=== PATIENT | female | born 1990 | race African-American/Black ===

== ENCOUNTER 2016-10-04 15:14 | Emergency (ER) | payer MEDICAID ==
[2016-10-04] MEDS ORDERED: IBUPROFEN 600 MG TABLET PO ONE (17:57)
--- NOTE | 2016-10-04 17:58 | ER Document Report ---
ED General - General Chief Complaint: Abdominal Pain Stated Complaint: NUMBNESS Mode of Arrival: Ambulatory Information source: Patient Notes: Patient is complaining of headache and sore throat for the past 2 days, the headache worsened last night. Endorses associated fever and chills but denies cough, rhinorrhea, ear pain, nausea, vomiting, diarrhea or urinary symptoms. She has tried ibuprofen, Dayquil which has not provided any relief. Denies any sick contacts or recent travel. She states she was having abdominal pain but it started right before going to the bathroom and completely resolved afterwards. TRAVEL OUTSIDE OF THE [place] IN LAST 30 DAYS: No - Related Data Allergies/Adverse Reactions: No Known Allergies Allergy (Verified 10/04/16 15:26) Past Medical History - Social History Smoking Status: Unknown if Ever Smoked Family History: None Past Surgical History: Reports: Hx Orthopedic Surgery - left leg Review of Systems - Review of Systems Constitutional: See HPI EENT: See HPI Gastrointestinal: See HPI Physical Exam - Vital signs Vitals: Temp Pulse Resp BP Pulse Ox 100.2 F 92 20 144/76 H 100 10/04/16 15:22 10/04/16 15:22 10/04/16 15:22 10/04/16 15:22 10/04/16 15:22 - Notes Notes: PHYSICAL EXAM: CONSTITUTIONAL: Alert and oriented, well-appearing and in no acute distress. HENT: Normocephalic, atraumatic. Ear canals without erythema or foreign body, TMs pearly fisher with good bony landmarks. Nares clear without erythema, septal hematoma or deviation, airway patent. Oropharynx erythematous with tonsilar enlargement and exudates bilaterally but no malocclusion. Trachea midline. Uvula midline. Moist mucous membranes. EYES: Pupils equal round and reactive to light, EOM intact. Sclera anicteric, conjunctiva are normal. No entrapment. HEART: Regular rate and rhythm without murmurs. LUNGS: CTAB and equal. No wheezes, rales or rhonchi. GI: Nontender, non-distended. No organomegaly. no CVAT. EXTREMITIES: Normal range of motion, no pitting edema. No cyanosis. Cap Refill < 3 seconds. SKIN: Warm and dry. Normal turgor. No rashes or lesions noted. Course - Re-evaluation Re-evalutation: 10/04/16 19:06 Reviewed lab work - POS rapid strep, NEG influenza. Discussed results with patient. Discharged home in stable condition, provided script for abx. Supportive care treatments discussed. Follow-up with PMD. - Vital Signs Vital signs: Temp Pulse Resp BP Pulse Ox 100.2 F 92 20 144/76 H 100 10/04/16 15:22 10/04/16 15:22 10/04/16 15:22 10/04/16 15:22 10/04/16 15:22 - Laboratory Laboratory results interpreted by me: POS RAPID STREP Discharge - Discharge Clinical Impression: Strep pharyngitis Condition: Stable Disposition: HOME, SELF-CARE Additional Instructions: Strep Throat Your sore throat is due to the streptococcus germ (strep throat). Strep throat usually makes you feel quite ill with fever and aches, headache, swollen sore throat, and tender bumps under the angles of the jaw. Strep throat requires antibiotic treatment. Although the sore throat may go away by itself, complications such as rheumatic fever, kidney disease, or throat abscess can occur. We usually prescribe antibiotics by mouth. Be sure to take the medicine until it's gone. If you stop early, the strep may come back. If you are vomiting, are severely ill, or can't remember to take pills, we can give you an antibiotic shot. Take acetaminophen or ibuprofen for pain and fever. Sip frequent clear liquids, or use popsicles or ice chips. Anesthetic sprays or lozenges may help. Make sure the air in the room is not too dry. Avoid using decongestants or antihistamines. Call the doctor if there is no improvement in three days, or if you have difficulty breathing, increasing throat pain, high fever, rash, or frequent vomiting. Antibiotic Therapy You have been given an antibiotic prescription. It's important that you take all the medication, unless instructed otherwise by your physician. Failure to complete the entire course can result in relapse of your condition. Common side effects of antibiotics include nausea, intestinal cramping, or diarrhea. Women may develop vaginal yeast infections, and babies can get yeast (thrush) in the mouth following the use of antibiotics. Contact your physician if you develop significant side effects from this medication. Allergy to this antibiotic can result in hives, wheezing, faintness, or itching. If symptoms of allergy occur, stop the medication and call the doctor. Prescriptions: Amoxicillin 500 mg PO Q12H #14 capsule Forms: Return to Work
[2016-10-04 19:21] VITALS: BP 138/74
== END 2016-10-04 19:17 | disposition home or self-care (01) ==
LOC: ER 15:14
DX: J02.0 Streptococcal pharyngitis (principal); R10.9 Unspecified abdominal pain; R20.0 Anesthesia of skin; R51 Headache
CPT/HCPCS: 99283; 87880; 87804; J3490

== ENCOUNTER 2016-10-21 21:04 | Emergency (ER) | payer MEDICAID ==
--- NOTE | 2016-10-21 21:10 | ER Document Report ---
ED Medical Screen (RME) - General Stated Complaint: ARM PAIN Time seen by provider: 21:09 Mode of Arrival: Ambulatory Information source: Patient Notes: 26-year-old female presents to ED for right hand and wrist pain. 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 Last menstrual period . I have greeted and performed a rapid initial assessment of this patient. A comprehensive ED assessment and evaluation of the patient, analysis of test results and completion of medical decision making process will be conducted by an additional ED providers. TRAVEL OUTSIDE OF THE [place] IN LAST 30 DAYS: No - Related Data Allergies/Adverse Reactions: No Known Allergies Allergy (Verified 10/04/16 15:26) Past Medical History Past Surgical History: Reports: Hx Orthopedic Surgery - left leg
[2016-10-21] MEDS ORDERED: IBUPROFEN 800 MG TABLET PO ONE (21:11)
--- NOTE | 2016-10-21 22:00 | ER Document Report ---
ED General - General Chief Complaint: Hand Pain Stated Complaint: ARM PAIN Mode of Arrival: Ambulatory TRAVEL OUTSIDE OF THE [place] 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 Denies any exacerbation of pain with any movements. Patient states is been ongoing for quite some time exacerbated today. Patient also requesting present has no fevers chills nausea vomiting abdominal pain - Related Data Allergies/Adverse Reactions: No Known Allergies Allergy (Verified 10/04/16 15:26) Past Medical History - General Information source: Patient - Social History Smoking Status: Never Smoker Frequency of alcohol use: None Drug Abuse: None Family History: None Renal/ Medical History: Denies: Hx Peritoneal Dialysis Surgical Hx: Negative Past Surgical History: Reports: Hx Orthopedic Surgery - left leg Review of Systems - Review of Systems Constitutional: No symptoms reported EENT: No symptoms reported Cardiovascular: No symptoms reported Respiratory: No symptoms reported Gastrointestinal: No symptoms reported Genitourinary: No symptoms reported Female Genitourinary: No symptoms reported Musculoskeletal: Other - Right hand pain Skin: No symptoms reported Hematologic/Lymphatic: No symptoms reported Neurological/Psychological: No symptoms reported -: Yes All other systems reviewed and negative Physical Exam - Vital signs Vitals: Temp Pulse Resp BP Pulse Ox 98.2 F 69 16 121/59 L 99 10/21/16 21:11 10/21/16 21:11 10/21/16 21:11 10/21/16 21:11 10/21/16 21:11 Interpretation: Normal - General General appearance: Appears well, Alert - HEENT Head: Normocephalic, Atraumatic Eyes: Normal Pupils: PERRL - Respiratory Respiratory status: No respiratory distress Chest status: Nontender Breath sounds: Normal Chest palpation: Normal - Cardiovascular Rhythm: Regular Heart sounds: Normal auscultation Murmur: No - Abdominal Inspection: Normal Distension: No distension Bowel sounds: Normal Tenderness: Nontender Organomegaly: No organomegaly - Back Back: Normal, Nontender - Extremities General upper extremity: Normal inspection, Nontender, Normal color, Normal ROM , Normal temperature General lower extremity: Normal inspection, Nontender, Normal color, Normal ROM , Normal temperature, Normal weight bearing. 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 Sometimes occurs when holding instruments are performing jobs with vibrating instruments. 2 aid in relief the syndrome most the time wearing a thick padded glove or padding the instrument that you're using reduces to vibration and reduces the pain. Treatment of pain includes using Tylenol Motrin. You are not Forms: Return to Work
[2016-10-21 22:16] VITALS: BP 117/70
== END 2016-10-21 22:15 | disposition home or self-care (01) ==
LOC: ER 21:04
DX: M79.641 Pain in right hand (principal); Z32.02 Encounter for pregnancy test, result negative
CPT/HCPCS: 99283; 81025; J3490

== ENCOUNTER 2016-11-02 21:44 | Emergency (ER) | payer MEDICAID ==
[2016-11-02 21:49] VITALS: BP 142/73
--- NOTE | 2016-11-02 21:49 | ER Document Report ---
ED Medical Screen (RME) - General Stated Complaint: FALL,MULTIPLE INJURIES Time seen by provider: 21:46 Mode of Arrival: Ambulatory Information source: Patient Notes: I have greeted and performed a rapid initial assessment of this patient. A comprehensive ED assessment and evaluation of the patient, analysis of test results and completion of the medical decision making process will be conducted by additional ED providers. TRAVEL OUTSIDE OF THE [place] IN LAST 30 DAYS: No - HPI Patient complains to provider of: LEFT FOOT, RIGHT ARM PAIN Onset: This morning Onset/Duration: Sudden Context: FELL OFF PORCH. OPENING DOOR AND SLIPPED. Quality of pain: Throbbing Severity: Moderate Pain Level: 3 Associated Symptoms: None Exacerbated by: Movement, Walking Relieved by: Denies Similar symptoms previously: No Recently seen / treated by doctor: No - Related Data Smoking: Non-smoker Frequency of alcohol use: Occasional Drug Abuse: None Allergies/Adverse Reactions: No Known Allergies Allergy (Verified 10/04/16 15:26) Past Medical History Renal/ Medical History: Denies: Hx Peritoneal Dialysis Past Surgical History: Reports: Hx Orthopedic Surgery - left leg Physical Exam - Vital signs Vitals: Temp Pulse Resp BP Pulse Ox 97.8 F 77 19 142/73 H 98 11/02/16 21:48 11/02/16 21:48 11/02/16 21:48 11/02/16 21:48 11/02/16 21:48 Course - Vital Signs Vital signs: Temp Pulse Resp BP Pulse Ox 97.8 F 77 19 142/73 H 98 11/02/16 21:48 11/02/16 21:48 11/02/16 21:48 11/02/16 21:48 11/02/16 21:48 Doctor's Discharge - Discharge Clinical Impression: Contusion of forearm, right, Strain of foot, left Condition: Good Disposition: HOME, SELF-CARE Additional Instructions: Please return to the ER immediately if you develop worsening pain, increased swelling or pain in the foot, or if you feel unwell. Follow up with your doctor in 3 days for reevaluation. Forms: Return to Work
--- NOTE | 2016-11-02 22:41 | ER Document Report ---
ED General - General Chief Complaint: Fall Stated Complaint: FALL,MULTIPLE INJURIES Mode of Arrival: Ambulatory Notes: Patient is 26 year old female presents with complaint of falling after missing a step. She said she felt onto her right forearm. She also her left foot. Pain is mostly in the bottom of the heel of her left foot. Pain in the form is mostly in the mid forearm. She denies hitting her head. No loss of consciousness. No neck pain. No back pain. No other complaints. She does not take blood thinning medications. No chronic medical problems. TRAVEL OUTSIDE OF THE [place] IN LAST 30 DAYS: No - Related Data Allergies/Adverse Reactions: No Known Allergies Allergy (Verified 10/04/16 15:26) Past Medical History - General Information source: Patient - Social History Smoking Status: Never Smoker Frequency of alcohol use: Occasional Drug Abuse: None Family History: None Patient has suicidal ideation: No Patient has homicidal ideation: No Renal/ Medical History: Denies: Hx Peritoneal Dialysis Past Surgical History: Reports: Hx Orthopedic Surgery - left leg Review of Systems - Review of Systems Notes: My Normal Review Basic REVIEW OF SYSTEMS: CONSTITUTIONAL : Denies fever, chills, or sweats. Denies recent illness. EENT: Denies eye, ear, throat, or mouth pain or symptoms. Denies nasal or sinus congestion. RESPIRATORY: Denies cough, cold, or chest congestion. Denies shortness of breath, difficulty breathing, or wheezing. GASTROINTESTINAL: Denies abdominal pain. Denies nausea, vomiting, or diarrhea. Denies constipation. Last BM: MUSCULOSKELETAL: Right forearm pain. Left foot pain. SKIN: Denies rash or skin lesions. HEMATOLOGIC : Denies easy bruising or bleeding. NEUROLOGICAL: Denies altered mental status or loss of consciousness. Denies headache. Denies weakness or paralysis or loss of use of either side. Denies problems with gait or speech. Denies sensory or motor loss. ALL OTHER SYSTEMS REVIEWED AND NEGATIVE. Physical Exam - Vital signs Vitals: Temp Pulse Resp BP Pulse Ox 97.8 F 77 19 142/73 H 98 11/02/16 21:48 11/02/16 21:48 11/02/16 21:48 11/02/16 21:48 11/02/16 21:48 - Notes Notes: General Appearance: Well nourished, alert, cooperative, no acute distress, no obvious discomfort. Well-appearing. Vitals: reviewed, See vital signs table. Head: no swelling or tenderness to the head Eyes: PERRL, EOMI, Conjuctiva clear Neck: Supple, no neck tenderness, No thyromegaly Lungs: No wheezing, No rales, No rhonci, No accessory muscle use, good air exchange bilaterally. Heart: Normal rate, Regular rythm, No murmur, no rub Abdomen: Normal BS, soft, No rigidity, No abdominal tenderness, No guarding, no rebound, no abdominal masses, no organomegaly Extremities: strength 5/5 in all extremities, good pulses in all extremities, no swelling or tenderness in the extremities with exception of some mild pain palpation of the mid right forearm. No wrist tenderness. No hand tenderness the right strap me. Of the upper extremities completely nontender. Right lower extremity completely nontender. Left lower extremity is only tender to palpation at the base of the left heel. She has mild pain over the dorsum of the left foot as well. No obvious step-offs or deformity. She is good range of motion of the foot without difficulty. Good distal sensation., no edema. Skin: warm, dry, appropriate color, no rash Neuro: speech clear, oriented x 3, normal affect, responds appropriately to questions. Course - Vital Signs Vital signs: Temp Pulse Resp BP Pulse Ox 97.8 F 77 19 142/73 H 98 11/02/16 21:48 11/02/16 21:48 11/02/16 21:48 11/02/16 21:48 11/02/16 21:48 - Transfer of Care Notes: 11/03/16 00:47 Patient's x-rays are negative. She looks well. I feel she is safe to be discharged home. She does request crutches as she does have some pain with walking. I will give her crutches. I encouraged her to follow closely with her primary care doctor and to 3 days for reevaluation. Encouraged return to ER shows worsening pain or feels unwell. Patient agrees with plan and will be discharged home. Dictation of this chart was performed using voice recognition software; therefore, there may be some unintended grammatical errors. Discharge - Discharge Clinical Impression: Contusion of forearm, right Qualifiers: Encounter type: initial encounter Qualified Code(s): S50.11XA - Contusion of right forearm, initial encounter Strain of foot, left Qualifiers: Encounter type: initial encounter Qualified Code(s): S96.912A - Strain of unspecified muscle and tendon at ankle and foot level, left foot, initial encounter Condition: Good Disposition: HOME, SELF-CARE Additional Instructions: Please return to the ER immediately if you develop worsening pain, increased swelling or pain in the foot, or if you feel unwell. Follow up with your doctor in 3 days for reevaluation. Forms: Return to Work
== END 2016-11-02 22:53 | disposition home or self-care (01) ==
LOC: ER 21:44
DX: S50.11XA Contusion of right forearm, initial encounter (principal); S96.912A Strain of unspecified muscle and tendon at ankle and foot level, left foot, initial encounter; W10.9XXA Fall (on) (from) unspecified stairs and steps, initial encounter
CPT/HCPCS: 99284

== ENCOUNTER 2016-12-12 11:42 | Emergency (ER) | payer MEDICAID ==
--- NOTE | 2016-12-12 11:46 | ER Document Report ---
ED Medical Screen (RME) - General Stated Complaint: FLANK PAIN Mode of Arrival: Ambulatory Information source: Patient Notes: Patient presents with lower abdominal pain pain, also pain when she voids and left-sided flank pain. Denies fever vomiting diarrhea. Reports symptoms for the past 3 or 4 days. I have greeted and performed a rapid initial assessment of this patient. A comprehensive ED assessment and evaluation of the patient, analysis of test results and completion of the medical decision making process will be conducted by additional ED providers. TRAVEL OUTSIDE OF THE [place] IN LAST 30 DAYS: No - Related Data Allergies/Adverse Reactions: No Known Allergies Allergy (Verified 12/12/16 11:45) Past Medical History Renal/ Medical History: Denies: Hx Peritoneal Dialysis Past Surgical History: Reports: Hx Orthopedic Surgery - left leg
[2016-12-12 12:10] LABS: ABSOLUTE EOSINOPHILS # (AUTO) 0.1 10^3/uL (0.0-0.6); ABSOLUTE LYMPHOCYTES (AUTO) 1.5 10^3/uL (0.5-4.7); ABSOLUTE MONOCYTES (AUTO) 0.5 10^3/uL (0.1-1.4); BASOPHILS % (AUTO) 0.7 % (0-2); EOSINOPHILS % (AUTO) 1.1 % (0-6); HEMATOCRIT 36.5 % (36.0-47.0); HEMOGLOBIN 12.2 g/dL (12.0-15.5); HGB HCT DIFFERENCE 0.1; LYMPHOCYTES % (AUTO) 24.4 % (13-45); MEAN CORPUSCULAR HEMOGLOBIN 27.1 pg (27.0-33.4); MEAN CORPUSCULAR HGB CONC 33.4 g/dL (32.0-36.0); MEAN CORPUSCULAR VOLUME 81 fl (80-97); MONOCYTES % (AUTO) 7.8 % (3-13); RED BLOOD COUNT 4.51 10^6/uL (3.72-5.28); RED CELL DISTRIBUTION WIDTH 14.9 % (11.5-14.0)
[2016-12-12 12:19] LABS: APPEARANCE,URINE SLIGHTLY-CLOUDY; BILIRUBIN,URINE NEGATIVE (NEGATIVE); GLUCOSE, URINE NEGATIVE (NEGATIVE); KETONES,URINE NEGATIVE (NEGATIVE); LEUKOCYTE ESTERASE,URINE MODERATE (NEGATIVE); NITRITE,URINE NEGATIVE (NEGATIVE); PROTEIN,URINE 100 mg/dL (NEGATIVE); URINE SPECIFIC GRAVITY 1.012; UROBILINOGEN,URINE NEGATIVE mg/dL (<2.0)
[2016-12-12] MEDS ORDERED: ACETAMINOPHEN 325 MG TABLET PO ONE (12:22)
[2016-12-12] MEDS ORDERED: ONDANSETRON 4 MG TAB.RAPDIS PO ONE (12:22)
[2016-12-12 12:28] LABS: ALANINE AMINOTRANSFERASE 23 U/L (9-52); ALBUMIN 4.2 g/dL (3.5-5.0); ALKALINE PHOSPHATASE 129 U/L (38-126); ANION GAP 11 (5-19); ASPARTATE AMINO TRANSFERASE 20 U/L (14-36); BILIRUBIN,TOTAL 0.4 mg/dL (0.2-1.3); BLOOD UREA NITROGEN 10 mg/dL (7-20); CALCIUM 10.1 mg/dL (8.4-10.2); CARBON DIOXIDE 25 mmol/L (22-30); CHLORIDE 105 mmol/L (98-107); CREATININE RESULT 0.78 mg/dL (0.52-1.25); GLUCOSE 108 mg/dL (75-110); POTASSIUM 4.4 mmol/L (3.6-5.0); SODIUM 141.2 mmol/L (137-145); TOTAL PROTEIN 7.7 g/dL (6.3-8.2)
--- NOTE | 2016-12-12 12:35 | ER Document Report ---
HPI - HPI Patient complains to provider of: dysuria and flank pain Pain Level: 5 Context: Patient is a 26-year-old female presents emergency Department with dysuria, pyuria, frequency and urgency for the past 4 days. Patient states she woke up this morning with left-sided flank pain. She denies any hematuria. Denies any nausea or vomiting, diarrhea constipation. Past medical history significant for asthma does not have a rescue inhaler at home. She is very desirous primary care provider. Denies any surgical or social history. - DERM Skin Color: Normal Past Medical History - General Information source: Patient - Social History Smoking Status: Never Smoker Chew tobacco use (# tins/day): No Frequency of alcohol use: None Drug Abuse: None Family History: None Patient has suicidal ideation: No Patient has homicidal ideation: No Renal/ Medical History: Denies: Hx Peritoneal Dialysis Past Surgical History: Reports: Hx Orthopedic Surgery - left leg Vertical Provider Document - CONSTITUTIONAL Agree With Documented VS: Yes Exam Limitations: No Limitations General Appearance: WD/WN, No Apparent Distress - INFECTION CONTROL TRAVEL OUTSIDE OF THE [place] IN LAST 30 DAYS: No - RESPIRATORY Respiratory: Breath Sounds Normal, No Respiratory Distress, Chest Non-Tender. negative: Rales, Rhonchi, Wheezing O2 Sat by Pulse Oximetry: 100 - CARDIOVASCULAR Cardiovascular: Regular Rate, Regular Rhythm, No Murmur Pulses: Normal: Radial, Dorsalis pedis - GI/ABDOMEN Gastrointestinal: Abdomen Soft, Abdomen Non-Tender, No Organomegaly, Normal Bowel Sounds - BACK Back: Normal Inspection. negative: CVA Tenderness-Right, CVA Tenderness-Left - MUSCULOSKELETAL/EXTREMETIES Musculoskeletal/Extremeties: MAEW, FROM, Non-Tender, No Edema - NEURO Level of Consciousness: Awake, Alert, Appropriate Motor/Sensory: No Motor Deficit, No Sensory Deficit - DERM Integumentary: Warm, Dry, No Rash Course - Re-evaluation Re-evalutation: 12/12/16 12:45 Patient is a 26-year-old female is here mainly stable, no acute distress and afebrile. CBC does not reveal elevated blood cell count no concern for leukocytosis, hemoglobin is 11 without any concerns for anemia. CMP normal without any concerns for acute kidney injury or concern for pyelonephritis. Urinalysis does reveal UTI with hematuria. Will discharge patient home on by mouth antibiotics and can follow-up with PCP - Vital Signs Vital signs: Temp Pulse Resp BP Pulse Ox 98.8 F 74 24 H 126/63 H 100 12/12/16 11:46 12/12/16 11:46 12/12/16 11:46 12/12/16 11:46 12/12/16 11:46 - Laboratory Result Diagrams: 12/12/16 11:30 12/12/16 11:30 Laboratory results interpreted by me: 12/12/16 12/12/16 12/12/16 11:30 11:30 11:30 RDW 14.9 H Alkaline Phosphatase 129 H Urine Protein 100 H Urine Blood SMALL H Ur Leukocyte Esterase MODERATE H Urine Ascorbic Acid 40 H Discharge - Discharge Clinical Impression: UTI (urinary tract infection) Condition: Good Disposition: HOME, SELF-CARE Additional Instructions: URINARY TRACT INFECTION: Your evaluation indicates that you have a urinary tract infection. This is due to germs growing in the bladder. This is a common problem. This infection usually responds quickly to antibiotics. Your antibiotic should be taken exactly as prescribed. Drink plenty of fluids -- three to four quarts a day. Occasionally, a bladder anesthetic will be prescribed to help stop the feeling of urgency until the antibiotic has a chance to clear the infection. This may cause your urine to be dark orange. Certain urine infections require a culture. If the doctor obtained a culture, the results will be back in two days. You should call to see if a change in treatment is needed. A repeat urinalysis after you finish treatment is often recommended. The physician will let you know if further testing is required. Call the doctor if you develop fever, chills, flank pain, inability to urinate, or blood in the urine. ANTIBIOTIC THERAPY: You have been given an antibiotic prescription. It's important that you take all the medication, unless instructed otherwise by your physician. Failure to complete the entire course can result in relapse of your condition. Common side effects of antibiotics include nausea, intestinal cramping, or diarrhea. Women may develop vaginal yeast infections, and babies can get yeast (thrush) in the mouth following the use of antibiotics. Contact your physician if you develop significant side effects from this medication. Allergy to this antibiotic can result in hives, wheezing, faintness, or itching. If symptoms of allergy occur, stop the medication and call the doctor. CIPROFLOXACIN: You have been given an antibacterial agent, ciprofloxacin (Cipro). This medicine is not related to the penicillins, sulfas, cephalosporins, or tetracyclines. It is often given to patients who are allergic to these drugs. It has been chosen for you either because other drugs are not appropriate, or because of the nature of your problem. Cipro should not be taken with antacids, as these can decrease its effectiveness. It can be taken without regard to meals. CIPRO SHOULD NOT BE TAKEN BY CHILDREN, NURSING WOMEN, OR WOMEN. Although Cipro is usually well-tolerated, common side effects can include nausea and diarrhea. Contact your doctor if you experience any unusual symptoms while on this medication, such as joint pain or swelling, shortness of breath, wheezing, faintness, or hives. FOLLOW-UP CARE: If you have been referred to a physician for follow-up care, call the physician s office for an appointment as you were instructed or within the next two days. If you experience worsening or a significant change in your symptoms, notify the physician immediately or return to the Emergency Department at any time for re-evaluation. Prescriptions: Ibuprofen [Motrin 800 mg Tablet] 800 mg PO Q8HP PRN #30 tab PRN Reason: Albuterol Sulfate [Proair HFA Inhalation Aerosol 8.5 gm MDI] 2 puff IH Q4H PRN # 1 mdi PRN Reason: Ciprofloxacin HCl [Cipro 250 mg Tablet] 1 tab PO BID #10 tab Referrals: [facility] [NO LOCAL MD] - Follow up as needed RAN DEVINE DO [NO LOCAL MD] - Follow up as needed
[2016-12-12] MEDS ORDERED: CIPROFLOXACIN HCL 500 MG TABLET PO ONE (12:41)
[2016-12-12 13:08] VITALS: BP 138/73
== END 2016-12-12 13:00 | disposition home or self-care (01) ==
LOC: ER 11:42
DX: N39.0 Urinary tract infection, site not specified (principal); R31.9 Hematuria, unspecified; J45.909 Unspecified asthma, uncomplicated
CPT/HCPCS: 99284; 36415; 87086; 85025; 81025; 87088; 80053; 81001; 87186; J3490 ×2; S0119

== ENCOUNTER 2017-09-04 04:07 | Emergency (ER) | payer MEDICAID ==
[2017-09-04] MEDS ORDERED: IBUPROFEN 600 MG TABLET PO ONE (04:26)
--- NOTE | 2017-09-04 04:29 | ER Document Report ---
ED Extremity Problem, Lower - General Chief Complaint: R knee pain Stated Complaint: R KNEE PAIN Time Seen by Provider: 09/04/17 04:25 Notes: The patient is a 27-year-old female who presents with right knee pain after she was dancing at the club and heard a popping sensation. She thinks she saw her kneecap go off to the side and then it quickly went back into place. She denies numbness, tingling, open wounds, redness or difficulty walking. TRAVEL OUTSIDE OF THE [place] IN LAST 30 DAYS: No - Related Data Allergies/Adverse Reactions: No Known Allergies Allergy (Verified 12/12/16 11:45) Past Medical History - General Information source: Patient - Social History Smoking Status: Current Some Day Smoker Chew tobacco use (# tins/day): No Frequency of alcohol use: Occasional Drug Abuse: None Family History: None Patient has suicidal ideation: No Patient has homicidal ideation: No Renal/ Medical History: Denies: Hx Peritoneal Dialysis Past Surgical History: Reports: Hx Orthopedic Surgery - left leg Review of Systems - Review of Systems Notes: REVIEW OF SYSTEMS: CONSTITUTIONAL: -fevers, -chills EENT: -eye pain, -difficulty swallowing, -nasal congestion CARDIOVASCULAR:-chest pain, -syncope. RESPIRATORY: -cough, -SOB GASTROINTESTINAL: -abdominal pain, - nausea, -vomiting, -diarrhea GENITOURINARY: -dysuria, -hematuria MUSCULOSKELETAL: +right knee pain, -back pain, -neck pain SKIN: -rash or skin lesions. HEMATOLOGIC: -easy bruising or bleeding. LYMPHATIC: -swollen, enlarged glands. NEUROLOGICAL: -altered mental status or loss of consciousness, -headache, - neurologic symptoms PSYCHIATRIC: -anxiety, -depression. ALL OTHER SYSTEMS REVIEWED AND NEGATIVE. Physical Exam - Vital signs Vitals: Temp Pulse Resp BP Pulse Ox 97.8 F 93 18 151/64 H 100 09/04/17 04:53 09/04/17 04:53 09/04/17 04:53 09/04/17 04:53 09/04/17 04:53 - Notes Notes: PHYSICAL EXAMINATION: GENERAL: Well-appearing, well-nourished and in no acute distress. HEAD: Atraumatic, normocephalic. EYES: Pupils equal round and reactive to light, extraocular movements intact, sclera anicteric, conjunctiva are normal. ENT: nares patent, oropharynx clear without exudates. Moist mucous membranes. NECK: Normal range of motion, supple without lymphadenopathy LUNGS: Breath sounds clear to auscultation bilaterally and equal. No wheezes rales or rhonchi. HEART: Regular rate and rhythm without murmurs ABDOMEN: Soft, nontender, normoactive bowel sounds. No guarding, no rebound. No masses appreciated. EXTREMITIES: Tenderness over right anterior knee. Able to lift leg off bed. Strong distal pulses. NEUROLOGICAL: Cranial nerves grossly intact. Normal speech, normal gait. Normal sensory and motor exams. PSYCH: Normal mood, normal affect. SKIN: Warm, Dry, normal turgor, no rashes or lesions noted. Course - Re-evaluation Re-evalutation: Based on patient's story, she may have had a right lateral patellar dislocation that spontaneously reduced. Will place her in a knee immobilizer and have her follow-up with orthopedics for further evaluation and treatment. - Vital Signs Vital signs: Temp Pulse Resp BP Pulse Ox 97.8 F 93 18 151/64 H 100 09/04/17 04:53 09/04/17 04:53 09/04/17 04:53 09/04/17 04:53 09/04/17 04:53 - Diagnostic Test Radiology reviewed: Image reviewed, Reports reviewed Radiology results interpreted by me: Right knee x-ray: Mild lateral subluxation of the patella of indeterminate age. Small knee effusion. Procedures - Immobilization Right Knee Time completed: 05:54 Pre-Proc Neuro Vasc Exam: Normal Immobilizer type: Knee immobilizer Performed by: PCT Post-Proc Neuro Vasc Exam: Normal Alignment checked and good: Yes Discharge - Discharge Clinical Impression: Right knee pain Qualifiers: Chronicity: acute Qualified Code(s): M25.561 - Pain in right knee Closed patellar dislocation Qualifiers: Encounter type: initial encounter Laterality: right Qualified Code(s): S83.004A - Unspecified dislocation of right patella, initial encounter Condition: Stable Disposition: HOME, SELF-CARE Additional Instructions: Based on your story and x-ray findings, you may have dislocated your patella ( kneecap). Keep the knee immobilizer on and use the crutches. Take Motrin every 6 hours with food to help with the pain and swelling and use ice packs. Follow-up with orthopedic surgeon this week for further evaluation and treatment. Forms: Elevated Blood Pressure Referrals: JUN ROBERTO MD [NO LOCAL MD] - Follow up as needed
[2017-09-04 04:54] VITALS: BP 151/64
--- NOTE | 2017-09-04 05:37 | RADIOLOGY REPORT (SQ) ---
EXAM DESCRIPTION: KNEE RIGHT 3 VIEWS COMPLETED DATE/TIME: 09/04/2017 5:24 am REASON FOR STUDY: right knee pain COMPARISON: None. NUMBER OF VIEWS: Four views. TECHNIQUE: AP, lateral, and both oblique radiographic images acquired of the right knee. LIMITATIONS: None. FINDINGS: MINERALIZATION: Normal. BONES: Mild lateral subluxation of the patella at the patellofemoral joint. No worrisome bone lesion s. JOINT: Small knee effusion. SOFT TISSUES: No soft tissue swelling. No radio-opaque foreign body. OTHER: No other significant finding. IMPRESSION: Mild lateral subluxation of the patella of indeterminate age. Small knee effusion. TECHNICAL DOCUMENTATION: JOB ID: [id number] [employer]- All Rights Reserved
== END 2017-09-04 06:00 | disposition home or self-care (01) ==
LOC: ER 04:07
DX: S83.004A Unspecified dislocation of right patella, initial encounter (principal); M25.561 Pain in right knee; F17.200 Nicotine dependence, unspecified, uncomplicated; X50.1XXA Overexertion from prolonged static or awkward postures, initial encounter; Y93.41 Activity, dancing
CPT/HCPCS: 99283; 73562; L1830; J3490

== ENCOUNTER → 2017-09-21 | Outpatient (CLI) | payer MEDICAID ==
--- NOTE | 2017-09-21 13:32 | RADIOLOGY REPORT (SQ) ---
EXAM DESCRIPTION: MRI RT LOWER JOINT WITHOUT COMPLETED DATE/TIME: 09/21/2017 12:30 pm REASON FOR STUDY: SPRAIN OF ANTERIOR CRUCIATE LIGAMENT OF R KNEE S83.511D SPRAIN OF ANTERIOR CRUCIA TE LIGAMENT OF RIGHT KNEE, COMPARISON: None. TECHNIQUE: Rightknee images acquired and stored on PACS. Multiplanar images include fat sensitive s equences as T1, water sensitive sequences as FST2 or STIR, cartilage sensitive sequences as FSPD, and gradient echo sequences. LIMITATIONS: Motion. FINDINGS: JOINT AND BURSAE: Joint effusion. BONE CORTEX AND MARROW: Bone contusions lateral femoral condyle and inferior medial margin of the pat tate. ACL: Intact. No degeneration or ganglion cyst. PCL: Intact. MCL: Intact. No periligamentous edema or fluid. LCL: Intact. No periligamentous edema or fluid. MEDIAL MENISCUS: Central increased signal posterior horn. No definite extension to the articular hsade face. LATERAL MENISCUS: Intact. MEDIAL COMPARTMENT: Cartilage preserved. No bone bruises or reactive marrow edema. No osteophytes. LATERAL COMPARTMENT: Cartilage preserved. See above. PATELLA: Medial retinaculum is torn. Subchondral edema inferior medial margin of the patella. No un stable osteochondral lesion. EXTENSOR MECHANISM: Intact. Quadriceps and patella tendons normal. SOFT TISSUES: Adjacent muscles and subcutaneous tissues normal. Normal flow void in popliteal artery and vein. OTHER: No other significant finding. IMPRESSION: 1. Recent lateral patellar dislocation. Torn medial retinaculum. 2. Joint effusion. TECHNICAL DOCUMENTATION: JOB ID: [id number] [facility]- All Rights Reserved
== END ==
LOC: RAD 11:33
PROVIDERS: ATTEND Family Medicine
DX: S83.511D Sprain of anterior cruciate ligament of right knee, subsequent encounter (principal); X58.XXXD Exposure to other specified factors, subsequent encounter; M25.461 Effusion, right knee

== ENCOUNTER → 2018-02-20 | Outpatient (CLI) | payer MEDICAID ==
--- NOTE | 2018-02-21 08:23 | RADIOLOGY REPORT (SQ) ---
EXAM DESCRIPTION: MRI RT LOWER JOINT WITHOUT COMPLETED DATE/TIME: 02/20/2018 5:54 pm REASON FOR STUDY: M23.91 UNSPECIFIED INTERNAL DERANGEMENT OF RIGHT KNEE M23.91 UNSPECIFIED INTERNAL DERANGEMENT OF RIGHT KNEE COMPARISON: 09/21/2017 TECHNIQUE: Rightknee images acquired and stored on PACS. Multiplanar images include fat sensitive s equences as T1, water sensitive sequences as FST2 or STIR, cartilage sensitive sequences as FSPD, and gradient echo sequences. LIMITATIONS: None. FINDINGS: JOINT AND BURSAE: Small suprapatellar knee joint effusion. No Colon's cyst. BONE CORTEX AND MARROW: No marrow signal abnormalities worrisome for occult fracture. ACL: Intact. No degeneration or ganglion cyst. PCL: Intact. MCL: Medial collateral ligament is intact on coronal image 15. However, superficial to the proximal attachment medial collateral ligament and proximal attachment medial head gastrocnemius muscle, there is heterotopic ossification, with a curvilinear rind of bony density 3 x 0.5 cm in size best shown o n coronal image 14 and sagittal image 23. LCL: Intact. No periligamentous edema or fluid. MEDIAL MENISCUS: No tears. No abnormal signal. LATERAL MENISCUS: No tears. No abnormal signal. MEDIAL COMPARTMENT: Cartilage preserved. No bone bruises or reactive marrow edema. No osteophytes. LATERAL COMPARTMENT: Cartilage preserved. No bone bruises or reactive marrow edema. No osteophytes. PATELLA: In the lower outer quadrant of the patella, in the area of bone contusions seen 09/21/2017 t here is now focal high-grade chondromalacia with cystic degeneration of the articular cartilage, and subcortical cyst formation in the lower inner quadrant of the patella. This is best shown on axial i mage 10 and coronal image 7. This is also seen on sagittal image 17. Medial and lateral retinacula are intact. Quadriceps and patellar tendons are intact. EXTENSOR MECHANISM: Intact. Quadriceps and patella tendons normal. SOFT TISSUES: Adjacent muscles and subcutaneous tissues normal. Normal flow void in popliteal artery and vein. OTHER: No other significant finding. 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 TECHNICAL DOCUMENTATION: JOB ID: [id number] [employer] [facility] [facility]- All Rights Reserved Reading location - IP/workstation name: [email or web address]
== END ==
LOC: RAD 16:28
PROVIDERS: ATTEND Physician Assistant
DX: M23.91 Unspecified internal derangement of right knee (principal)